=== PATIENT | female | born 1955 | race Caucasian/White ===

== ENCOUNTER 2021-05-07 05:06 | Emergency (ER) | payer MEDICAID ==
[~2021-05-07] VITALS: Ht 157.5 cm; Wt 62.6 kg
--- NOTE | 2021-05-07 06:38 | NUR ---
PT BIBS C/O ABDOMINAL DISCOMFORT S/P ASCITES. REQUESTING FOR PARACENTESIS. PATIENT ALERT AND ORIENTED X3. AMBULATORY WITH NON LABORED BREATHING.
[2021-05-07 07:13] VITALS: BP 120/70
--- NOTE | 2021-05-07 07:40 | NUR ---
Patient discharged to home in stable condition. Written and verbal after care instructions given. Patient verbalizes understanding of instruction.
--- NOTE | 2021-05-07 07:54 | NUR ---
ATTEMPTED TO DEPART PT, NEW TAB WAS FREEZING, AND WAS UNABLE TO.
== END 2021-05-07 08:40 | disposition home or self-care (01) ==
LOC: ER 05:12
DX: R18.8 Other ascites (principal); R17 Unspecified jaundice

== ENCOUNTER 2021-07-06 23:10 | Inpatient (IN) | payer MEDICAID ==
[~2021-07-06] VITALS: Ht 162.6 cm; Wt 65.8 kg
--- NOTE | 2021-07-06 23:14 | NUR ---
BIBR 102 C/O VOMITTING BLOOD SINCE 30 MINUTES AGO. AMS. HX ESOPHAGEAL VARICES. PT TOLERATING R/A WELL WITH NO SOB AT 97%. INNERSOLE MAKER LFA #18G S/L; PATENT AND INTACT. EMS ADMINSTERING NS 1000ML. CONNECTED PT TO POX AND MONITOR. SAFETY MEASURES IN PLACE.
--- NOTE | 2021-07-06 23:27 | NUR ---
PAGED DR JAY PER DR ORTA
[2021-07-06] MEDS ORDERED: OCTREOTIDE 100 MCG/ML VIAL ONE (23:30)
[2021-07-06] MEDS ORDERED: OCTREOTIDE 500 MCG/ML VIAL ONE (23:30)
[2021-07-06] MEDS ORDERED: CEFTRIAXONE 1GM BAG (ER ONLY) 1 GM/50 ML PIGGYBACK IV ONE (23:30)
[2021-07-06] MEDS ORDERED: OCTREOTIDE 1,250 MCG in IV NS 0.9% 250 ML IV ONE (23:30)
[2021-07-06] MEDS ORDERED: OCTREOTIDE 50 MCG/ML AMPUL IV ONE (23:30)
[2021-07-06] MEDS ORDERED: ONDANSETRON HCL/PF 4 MG/2 ML VIAL IVP ONE (23:30)
[2021-07-06] MEDS ORDERED: ONDANSETRON HCL/PF 4 MG/2 ML VIAL ONE (23:31)
--- NOTE | 2021-07-06 23:35 | NUR ---
RADIAL DRILL PRESS SET UP OPERATOR AT PT'S BEDSIDE
[2021-07-06] MEDS ORDERED: CEFTRIAXONE 1GM BAG (ER ONLY) 50 ML IV ONE (23:46)
--- NOTE | 2021-07-06 23:46 | NUR ---
RE PAGED DR JAY AT [phone]
--- NOTE | 2021-07-06 23:46 | NUR ---
SUPERINTENDENT CONTAINER TERMINAL AT PT'S BEDSIDE
--- NOTE | 2021-07-06 23:49 | NUR ---
COVID ANTIGEN SWAB COLLECTED AND SENT TO LAB
[2021-07-07] VITALS (59 sets, daily range): BP systolic 80–113; BP diastolic 50–71
--- NOTE | 2021-07-07 00:16 | NUR ---
RE PAGED DR JAY AT [phone]
[2021-07-07 00:22] LABS: BASOPHILS # (AUTO) 0.1 K/uL (0.0-0.2); BASOPHILS % (AUTO) 0.8 % (0.0-2.0); EOSINOPHILS % (AUTO) 1.8 % (0.0-6.0); HEMATOCRIT 28 % (33-45); HEMOGLOBIN 9.4 g/dL (11.5-14.8); LYMPHOCYTES # (AUTO) 3.2 K/uL (0.8-4.8); MEAN CORPUSCULAR HGB CONC 33 g/dl (31.0-36.0); MEAN CORPUSCULAR VOLUME 95 fL (82-100); MONOCYTES # (AUTO) 0.9 K/uL (0.1-1.30); MONOCYTES % (AUTO) 9.2 % (2.0-12.0); NEUTROPHILS # (AUTO) 5.2 K/uL (1.8-8.9); NEUTROPHILS % (AUTO) 54.2 % (43.0-81.0); PLATELET COUNT (AUTO) 100 K/uL (150-450); RED BLOOD CELL COUNT(AUTO) 2.98 MIL/uL (4.0-5.2); WHITE BLOOD COUNT (AUTO) 9.5 K/uL (4.3-11.0)
--- NOTE | 2021-07-07 00:32 | NUR ---
PAGED DR. SANDOVAL.
[2021-07-07] MEDS ORDERED: NOREPINEPHRINE 4 MG/4 ML AMPUL IV ONE (00:33)
[2021-07-07 00:42] LABS: ALANINE AMINOTRANSFERASE 30 U/L (12-78); ALBUMIN 1.9 g/dL (3.4-5.0); ALKALINE PHOSPHATASE 89 U/L (46-116); ASPARTATE AMINOTRANSFERASE 47 U/L (15-37); BILIRUBIN,DIRECT 1.9 mg/dL (0.0-0.2); BILIRUBIN,TOTAL 2.5 mg/dL (0.2-1.0); CALCIUM, SERUM 8.3 mg/dL (8.5-10.1); CARBON DIOXIDE 22 mmol/L (21-32); CHLORIDE 105 mmol/L (98-107); CREATININE 1.8 mg/dL (0.6-1.3); GLUCOSE 134 mg/dL (74-106); LIPASE 155 U/L (73-393); POTASSIUM 3.7 mmol/L (3.5-5.1); SODIUM SERUM 132 mmol/L (136-145); TOTAL PROTEIN, SERUM 5.3 g/dL (6.4-8.2); UREA NITROGEN, BLOOD 34 mg/dL (7-18)
--- NOTE | 2021-07-07 00:45 | NUR ---
BLOOD TRANSFUSION RBCx1 INITIATED AND WITNESSED BY TWO RNS. WILL MONITOR FOR ADVERSE REACTIONS.
--- NOTE | 2021-07-07 01:05 | NUR ---
MULTIPLE ATTEMPTS TO PAGE DR MISTY RAWLS AND DR SANDOVAL WITH NO RESPONSE OR CALL BACK
--- NOTE | 2021-07-07 01:07 | NUR ---
DR ORTA ON THE PHONE WITH MANAV EDWARDS
--- NOTE | 2021-07-07 01:15 | NUR ---
DR ORTA ON THE PHONE WITH DR SANDOVAL
[2021-07-07] MEDS ORDERED: NOREPINEPHRINE 8 MG in IV NS 0.9% 250 ML IV ONE (01:30)
--- NOTE | 2021-07-07 02:20 | NUR ---
UPDATED MICHELLE (DAUGHTER) VIA PHONE CALL
--- NOTE | 2021-07-07 02:33 | NUR ---
SPOKE TO [place] SIDE ROLLOFF TRUCK DRIVER, GEM. PT IS APPROVED TO STAY AT THE HOSPITAL WITH VERBAL AUTH [phone]
--- NOTE | 2021-07-07 02:36 | NUR ---
DR ORTA ON THE PHONE WITH DR MATSON
--- NOTE | 2021-07-07 02:50 | NUR ---
ADMITTING ORDERS OBTAINED FROM DR MATSON OVER THE PHONE. HOME MEDS REVIEWED. PER DR MATSON TO HOLD THE HOME MEDS
--- NOTE | 2021-07-07 02:52 | NUR ---
LAB AT BEDSIDE
[2021-07-07 03:02] LABS: HEMOGLOBIN 13.3 g/dL (11.5-14.8)
--- NOTE | 2021-07-07 03:06 | NUR ---
DR ORTA AT BED SIDE FOR CENTAL LINE PLACEMENT
--- NOTE | 2021-07-07 03:29 | NUR ---
BLOOD TRANFUSION RBCx4 , PT TOLARATED WELL . NO ADVERSE REACTIONS NOTED. VS STABLE
--- NOTE | 2021-07-07 03:45 | NUR ---
DR ORTA AT BED SIDE FOR CENTRAL LINE INSERTION
--- NOTE | 2021-07-07 04:14 | NUR ---
REPORT GIVEN TO FERNANDA ENGLISH FOR [place]
[2021-07-07] MEDS ORDERED: FURO-145 PO (04:30)
[2021-07-07] MEDS ORDERED: PANT40TA49 PO (04:30)
[2021-07-07] MEDS ORDERED: SPIR50TA5 PO (04:30)
[2021-07-07] MEDS ORDERED: LACT10SO3 PO (04:30)
[2021-07-07] MEDS ORDERED: ZINC50TA69 PO (04:30)
[2021-07-07] MEDS: OCTREOTIDE 1,250 MCG in IV NS 0.9% 247.5 ML IV PRN ×2 (04:40→16:15)
--- NOTE | 2021-07-07 05:11 | NUR ---
BILLIARD PARLOR MANAGER, ADMISSION. PT BEING ADMITTED FROM ER FOR HEMATEMESIS. LEVO STARTED FROM ER. PT IS ROOM AIR. SAT 95%. NO ACUTE DISTRESS NOTED. TURBINE ENGINEER SHOWING NSR. IV RT IJ TLC, RT AND LT HAND 18G. FC PATENT. PT IS NPO. AFEBRILE. LEVOPHED 0.3MCG/KG/MIN,SANDOSTATIN 50MCG/KG/MIN, HOB ELEVATED. ABDOMEN DISTENDED. WILL CONTINUE TO MONITOR VITALS.
--- NOTE | 2021-07-07 05:33 | NUR ---
BIAS BINDING CUTTER. ADMITTING ORDER RECEIVED FROM MD MATSON. GI CONSULT ORDERED. I CALLED GI OFFICE LEFT MESSAGE
[2021-07-07] MEDS ORDERED: PANTOPRAZOLE 40 MG VIAL ONE (05:51)
[2021-07-07] MEDS ORDERED: NOREPINEPHRINE 8MG/250ML RTU 250 ML IV ONE (05:51)
[2021-07-07] MEDS: IV D5/ 0.9% NACL 1,000 ML IV PRN ×2 (05:56→19:24)
[2021-07-07] MEDS: PANTOPRAZOLE 40 MG VIAL IV SCH ×3 (05:56→16:31)
[2021-07-07] MEDS: NOREPINEPHRINE 8 MG in IV NS 0.9% 242 ML IV PRN ×2 (05:59→16:15)
[2021-07-07] MEDS ORDERED: ONDANSETRON HCL/PF 4 MG/2 ML VIAL IV PRN (06:00)
[2021-07-07] MEDS ORDERED: MORPHINE SULFATE INJ 2 MG/ML DISP.SYRIN IV PRN (06:00)
--- NOTE | 2021-07-07 06:38 | NUR ---
PUBLIC INFORMATION DIRECTOR. PT DAUGHTER MICHELLE CALLED, UPDATED TODAYS PLAN.
--- NOTE | 2021-07-07 06:43 | NUR ---
FUEL OIL CLERK. PT IS NPO. MD JAY CALLED UPDATED, PLAN IS TODAY EGD
[2021-07-07 06:44] LABS: BASOPHILS % (AUTO) 0.1 % (0.0-2.0); HEMATOCRIT 41 % (33-45); HEMOGLOBIN 13.6 g/dL (11.5-14.8); LYMPHOCYTES # (AUTO) 0.8 K/uL (0.8-4.8); LYMPHOCYTES % (AUTO) 6.1 % (20.0-44.0); MEAN CORPUSCULAR HGB CONC 33 g/dl (31.0-36.0); MEAN CORPUSCULAR VOLUME 90 fL (82-100); MONOCYTES # (AUTO) 1.2 K/uL (0.1-1.30); MONOCYTES % (AUTO) 9.5 % (2.0-12.0); NEUTROPHILS # (AUTO) 10.6 K/uL (1.8-8.9); NEUTROPHILS % (AUTO) 84.3 % (43.0-81.0); PLATELET COUNT (AUTO) 96 K/uL (150-450); RED BLOOD CELL COUNT(AUTO) 4.55 MIL/uL (4.0-5.2); WHITE BLOOD COUNT (AUTO) 12.6 K/uL (4.3-11.0)
--- NOTE | 2021-07-07 07:20 | NUR ---
RN OPENING NOTES RECEIVED PT IN BED, AWAKE. A/O X4. STABLE ON ROOM AIR. NO SOB OR ANY S/S OF DISTRESS NOTED. SR ON TELE MONITOR. IV ACCESS ON L FA #18, R AC#18 AND R IJ TLC. ALL INTACT, PATENT AND FLUSHED. LEVO @0.2 MCG/KG/MIN, SANDOSTATIN @50ML/HR AND D5NS @75ML/HR. INFUSING WELL. FOOLEY CATH IN PLACE, DRAINING YELLOW COLORED URINE. SKIN IS INTACT. NPO. SAFETY PRECAUTIONS IMPLEMENTED. CALL LIGHT WITHIN REACH. BED LOCKED AND IN LOWEST POSITION WITH SIDE RAILS UP X2. WILL CONITNUE TO MONITOR.
[2021-07-07 07:25] LABS: ALBUMIN 2.1 g/dL (3.4-5.0); BILIRUBIN,TOTAL 4.7 mg/dL (0.2-1.0); CALCIUM, SERUM 8.1 mg/dL (8.5-10.1); CREATININE 1.6 mg/dL (0.6-1.3); POTASSIUM 4.5 mmol/L (3.5-5.1); TOTAL PROTEIN, SERUM 5.7 g/dL (6.4-8.2)
--- NOTE | 2021-07-07 09:27 | NUR ---
RN NOTES PROTONIX IV FOR 0900 NOT ADMINISTERED. LAST DOSE WAS GIVEN AT 0556. PHARMACY MADE AWARE AND WILL RESUME NEXT DOSE AT 1700.
[2021-07-07] MEDS ORDERED: METOCLOPRAMIDE HCL 10 MG/2 ML VIAL IV ONE (11:30)
--- NOTE | 2021-07-07 13:56 | NUR ---
RN NOTES PT WAS PICKED UP BY JOSE RN AND OR TEAM FOR EGD. VS STABLE. CONSENTS SIGNED.
[2021-07-07] MEDS ORDERED: FENTANYL PF 100MCG/2ML AMPUL ONE (15:02)
--- NOTE | 2021-07-07 16:04 | NUR ---
RN NOTES PT WAS BROUGHT BACK TO ROOM FROM OR ACCOMPANIED BY OR TEAM. VS STABLE. AWAKE. ON 3L O2 VIA NC. NO SOB OR ANY DISTRESS. WILL CONTINUE TO MONITOR.
[2021-07-07 18:03] LABS: HEMOGLOBIN 13.4 g/dL (11.5-14.8)
--- NOTE | 2021-07-07 18:45 | NUR ---
RN NOTES NOTIFIED DR. MATSON FOR RESULTS OF TROP 173. NEW ORDERS MADE AND CARRIED OUT.
--- NOTE | 2021-07-07 19:30 | NUR ---
RN NOTES NO SIGNIFICANT CHANGES THROUGHOUT THE SHIFT. STABLE ON ROOM AIR. ALL DUE MEDS GIVEN. NEEDS ATTENDED. KEPT CLEAN AND COMFORTABLE. SAFETY MEASURES IMPLEMENTED. ENDORSED TO NIGHT RN FOR [place].
[2021-07-07 23:01] LABS: IRON, SERUM 79 ug/dl (50-175); TOTAL IRON BINDING CAPACITY 224 ug/dl (250-450)
[2021-07-07 23:18] LABS: FERRITIN 158 ng/mL (8-388)
[2021-07-07] MEDS: CEFTRIAXONE 1 G in IV D5W 50 ML IV SCH (23:27)
[2021-07-08] VITALS (39 sets, daily range): BP systolic 81–122; BP diastolic 37–80
[2021-07-08 04:24] LABS: HEMOGLOBIN 11.9 g/dL (11.5-14.8); MONOCYTES # (AUTO) 0.8 K/uL (0.1-1.30); NEUTROPHILS # (AUTO) 4.7 K/uL (1.8-8.9); PLATELET COUNT (AUTO) 55 K/uL (150-450)
[2021-07-08 04:50] LABS: ALBUMIN 1.9 g/dL (3.4-5.0); BILIRUBIN,TOTAL 4.4 mg/dL (0.2-1.0); CALCIUM, SERUM 7.9 mg/dL (8.5-10.1); CREATININE 1.4 mg/dL (0.6-1.3); POTASSIUM 3.9 mmol/L (3.5-5.1); TOTAL PROTEIN, SERUM 5.2 g/dL (6.4-8.2)
[2021-07-08 05:08] LABS: BASOPHILS % (AUTO) 0.5 % (0.0-2.0); EOSINOPHILS % (AUTO) 1.3 % (0.0-6.0); HEMATOCRIT 36 % (33-45); LYMPHOCYTES # (AUTO) 1.5 K/uL (0.8-4.8); LYMPHOCYTES % (AUTO) 20.4 % (20.0-44.0); MEAN CORPUSCULAR HGB CONC 33 g/dl (31.0-36.0); MEAN CORPUSCULAR VOLUME 92 fL (82-100); MONOCYTES % (AUTO) 11.5 % (2.0-12.0); NEUTROPHILS % (AUTO) 66.3 % (43.0-81.0); RED BLOOD CELL COUNT(AUTO) 3.92 MIL/uL (4.0-5.2); WHITE BLOOD COUNT (AUTO) 7.1 K/uL (4.3-11.0)
[2021-07-08] MEDS ORDERED: LACTULOSE 10 G/15 ML UDC (PYXIS) PO PRN ×2 (07:30→12:00)
[2021-07-08] MEDS: PANTOPRAZOLE 40 MG VIAL IV SCH ×2 (09:09→16:28)
--- NOTE | 2021-07-08 16:00 | NUR ---
Patient arrived via wheelchair from ICU around 1600. Patient AO X 4, able to make needs known, can follow simple commands, no apparent distress noted, breathing even and unlabore, no chest pain, no dizziness, no palpitation. Patient's vital signs within normal limits, no complained of facial numbness or weakness, no extremity numbness or weakness at this time. Skin intact, warm to touch, no pallor or cyanosis noted. Patient oriented with use of call lights, use of bed control, use of telephone and tv control, also introduces COMMERCIAL RETOUCHER and RN assigned for today, verbalized understanding and gratitude. All belongings written in the inventory list. All needs attended, kept clean and dry, call light left within reach, safety precautions in place, brakes locked, side rails up X 2, will endorse to next shift for continuity of care.
--- NOTE | 2021-07-08 16:01 | NUR ---
Patient arrived via wheelchair from ICU around 1600. Patient AO X 4, able to make needs known, can follow simple commands, no apparent distress noted, breathing even and unlabore, no chest pain, no dizziness, no palpitation. Patient's vital signs within normal limits, no complained of facial numbness or weakness, no extremity numbness or weakness at this time. Skin intact, warm to touch, no pallor or cyanosis noted. Patient oriented with use of call lights, use of bed control, use of telephone and tv control, also introduces WIRER HELPER and RN assigned for today, verbalized understanding and gratitude. All belongings written in the inventory list. All needs attended, kept clean and dry, call light left within reach, safety precautions in place, brakes locked, side rails up X 2, will monitor closely for any changes.
[2021-07-08 16:19] LABS: BAND % (MANUAL) 1 % (0.0-5.0); EOSINOPHILS % (MANUAL) 1 % (0-4); LYMPHOCYTES % (MANUAL) 13 % (16-48); MONOCYTES % (MANUAL) 2 % (0-11.0); NEUTROPHILS % (MANUAL) 83 (42-76)
[2021-07-08] MEDS: IV D5/ 0.9% NACL 1,000 ML IV PRN (16:31)
--- NOTE | 2021-07-08 18:43 | NUR ---
RN CLOSING NOTES Patient lying in bed, no shortness of breath, respirations even and unlabored, no apparent distress noted, denies any pain or discomfort, no grimacing, no dizziness, no palpitations, no chest pain, remained afebrile, no s/s of bleeding, no unusual bruising noted. All due medications given per MD order, tolerated well. Sibley catheter draining clear yellowish urine free from any sediments, no hematuria, and no unusual odor noted in urine, denies any bladder pain or discomfort, bladder non distended during shift. Aspiration precautions observed at all times, kept head of bed elevated, all needs anticipated, kept clean and dry, patient repositioned frequently, safety precautions in place, frequent visual checks rendered, side rails up X 2, brakes locked, call light left within reach, will endorse to next shift for continuity of care.
--- NOTE | 2021-07-08 20:13 | NUR ---
TJEA RN OPENING NOTES: RECEIVED PATIENT AWAKE IN BED, BED IN LOW POSITION, CALL LIGHTS WITHIN REACH, NO COMPLAIN OF PAIN AND DISCOMFORT AT THIS TIME, ON ROOM AIR SATURATING WELL, PATIENT ON TELE MONITORING SR-94, WITH ONGOING IV LINE AT [facility] ON D5NS@75ML PER HOUR INFUSING WELL, WITH IV LINE AT RAC#18, PATIENT ON MACKEY CATHETER WITH 100CC URINE OUTPUT CLEAR YELLOW, ON MONITORING FOR BLEEDING, PATIENT KEPT CLEAN AND DRY ALL NEEDS MET WILL CONTINUE TO MONITOR.
[2021-07-08] MEDS: PROPRANOLOL HCL 10 MG TABLET PO SCH (21:19)
[2021-07-08] MEDS: CEFTRIAXONE 1 G in IV D5W 50 ML IV SCH (23:05)
[2021-07-09] VITALS: BP 99/67
[2021-07-09 04:30] VITALS: BP 82/52
[2021-07-09] MEDS: IV D5/ 0.9% NACL 1,000 ML IV PRN (04:44)
--- NOTE | 2021-07-09 06:17 | NUR ---
SUPERVISOR PULLET FARM CLOSING NOTES: PATIENT SLEEP IN BED COMFORTABLY, BED IN LOW POSITION CALL LIGHTS WITHIN REACH, NO COMPLAIN OF PAIN AND DISCOMFORT AT THIS TIME, PATIENT IS A/O X4 AMBULATORY ABLE TO TRANSFER FROM BEDSIDE TO COMMODE WITH ASSISTANCE, WITH IV LINE AT [facility] WITH ONGOING D5NS@75ML PER HOUR INFUSING WELL, WITH RAC#18 SL, ON TELE MONITORING SR-71, ON ROOM AIR SATURATING WELL, PATIENT KEPT CLEAN AND DRY ALL NEEDS MET ENDORSE TO INCOMING SHIFT.
[2021-07-09 06:49] LABS: BASOPHILS % (AUTO) 0.2 % (0.0-2.0); EOSINOPHILS % (AUTO) 2.4 % (0.0-6.0); HEMATOCRIT 36 % (33-45); HEMOGLOBIN 11.9 g/dL (11.5-14.8); LYMPHOCYTES # (AUTO) 1.3 K/uL (0.8-4.8); LYMPHOCYTES % (AUTO) 18.5 % (20.0-44.0); MEAN CORPUSCULAR HGB CONC 33 g/dl (31.0-36.0); MEAN CORPUSCULAR VOLUME 93 fL (82-100); MONOCYTES # (AUTO) 0.7 K/uL (0.1-1.30); MONOCYTES % (AUTO) 9.8 % (2.0-12.0); NEUTROPHILS # (AUTO) 4.9 K/uL (1.8-8.9); NEUTROPHILS % (AUTO) 69.1 % (43.0-81.0); PLATELET COUNT (AUTO) 61 K/uL (150-450); RED BLOOD CELL COUNT(AUTO) 3.88 MIL/uL (4.0-5.2); WHITE BLOOD COUNT (AUTO) 7.2 K/uL (4.3-11.0)
--- NOTE | 2021-07-09 07:39 | NUR ---
CARTON LINER OPENING NOTES PATIENT LAYING IN BED A/O X 4, BED IN LOWEST LOCKED, POSITION CALL LIGHTS WITHIN REACH, NO COMPLAINTS OF PAIN OR DISCOMFORT AT THIS TIME. PATIENT IS AMBULATORY AND ABLE TO TRANSFER FROM BEDSIDE TO COMMODE WITH ASSISTANCE, IV LINE RIJ WITH ONGOING D5 NS@75ML PER HOUR INFUSING WELL, WITH RAC#18 SL PATENT AND FLUSHING WELL. TELE MONITOR SR-84, TOLERATING WELL ON ROOM AIR WITH NO S/S OF RESPIRATORY DISTRESS AT THIS TIME. WILL CONTINUE TO MONITOR.
[2021-07-09 07:41] LABS: ALBUMIN 1.8 g/dL (3.4-5.0); BILIRUBIN,TOTAL 3.7 mg/dL (0.2-1.0); CALCIUM, SERUM 8.2 mg/dL (8.5-10.1); CREATININE 1.2 mg/dL (0.6-1.3); MAGNESIUM 1.6 mg/dL (1.8-2.4); PHOSPHORUS 2.6 mg/dL (2.5-4.9); POTASSIUM 4.3 mmol/L (3.5-5.1); TOTAL PROTEIN, SERUM 5.1 g/dL (6.4-8.2)
[2021-07-09] MEDS: PROPRANOLOL HCL 10 MG TABLET PO SCH (08:15)
[2021-07-09] MEDS: PANTOPRAZOLE 40 MG VIAL IV SCH ×2 (08:16→16:47)
[2021-07-09] MEDS ORDERED: METOPROLOL TARTRATE INJ 5 MG/5 ML AMPUL IVP PRN (09:00)
[2021-07-09] MEDS ORDERED: NITROGLYCERIN 0.4 MG/TAB BOTTLE SL ONE (09:00)
[2021-07-09] MEDS ORDERED: IV NS 0.9% 250 ML IV ONE (10:02)
[2021-07-09] MEDS ORDERED: IOHEXOL-350 100 ML VIAL IV ONE (10:02)
--- NOTE | 2021-07-09 10:03 | NUR ---
PROGRAM SUPPORT SPECIALIST NOTES SPOKE WITH ADELFO IN RADIOLOGY REGARDING PATIENT PRESCRIBED MAGNESIUM INTRAVIOUS MEDICATION WHO STATED MEDICATION COULD BE ADMINISTERED FOLLOWING PATIENT RETURN FROM PROCEDURE. PATIENT WAS PICKED UP BY TRANSPORT, DISCONNECTED FROM IV FLUIDS AND TELE MONITOR, AND TRANSPORTED OFF OF FLOOR FOR PROCEDURE. CONSENTS SIGNED PRIOR TO TRANSPORT.
[2021-07-09] MEDS: Magnesium 1GM/D5W 100ML PREMIX 100 ML IV SCH ×2 (11:10→12:32)
--- NOTE | 2021-07-09 11:10 | NUR ---
DEPUTY CLERK OF SUPERIOR COURT NOTES PATIENT RETURNED FROM PROCEDURE, STABLE, BP 91/48, HR 61, T 98.2, 02 99% ON ROOM AIR. IV MAGNESIUM ADMINISTERED ORDERED.
[2021-07-09] MEDS ORDERED: LACTULOSE 10 G/15 ML UDC (PYXIS) PO PRN (11:30)
[2021-07-09] MEDS ORDERED: PROP10TA68 PO (11:36)
[2021-07-09 11:39] VITALS: BP 85/66
[2021-07-09] MEDS ORDERED: Magnesium 1GM/D5W 100ML PREMIX 100 ML IV SCH (12:30)
--- NOTE | 2021-07-09 15:06 | NUR ---
Dr. Cheng reviewed [facility] via phone and cleared pt for discharge home.
--- NOTE | 2021-07-09 17:00 | NUR ---
DUST COLLECTOR ATTENDANTSTRATEGY INTERN NOTES DISCHARGE INSTRUCTIONS PROVIDED TO PATIENT, PATIENT VERBALIZED UNDERSTANDING OF INSTRUCTIONS AND SIGNED INSTRUCTIONS SHEET. PATIENT STATED SHE HAS ALL BELONGINGS AND SIGNED BELONGINGS LIST. R IJ CENTRAL LINE REMOVED 23 CM TUBING WITH NO COMPLAINTS OR DISCOMFORT. R FOREARM 18 G SL ALSO REMOVED WITH NO COMPLAINTS OR DISTRESS. MACKEY CATHETER REMOVED WITHOUT INCIDENT. ARM BANDS REMOVED. PATIENT VITAL SIGNS STABLE AND NO SIGNS OF DISTRESS UPON TIME OF DISCHARGE. PATIENT TRANSPORTED OFF OF FLOOR BY ESTRELLITA AVALOS VIA WHEELCHAIR.
== END 2021-07-09 18:02 | disposition home or self-care (01) | DRG 280 ==
LOC: ER 23:12 → ICU 07-07 03:04 → TELE 07-08 16:11
PROVIDERS: ADMIT Internal Medicine; ATTEND Internal Medicine
PROC: 30233N1 Transfusion of Nonautologous Red Blood Cells into Peripheral Vein, Percutaneous Approach (ICD-10-PCS; principal; 2021-07-07)
PROC: 06L38CZ Occlusion of Esophageal Vein with Extraluminal Device, Via Natural or Artificial Opening Endoscopic (ICD-10-PCS; 2021-07-07)
PROC: 0W9G3ZZ Drainage of Peritoneal Cavity, Percutaneous Approach (ICD-10-PCS; 2021-07-09)
DX: K70.31 Alcoholic cirrhosis of liver with ascites (principal); N17.0 Acute kidney failure with tubular necrosis; R57.1 Hypovolemic shock; I85.11 Secondary esophageal varices with bleeding; E72.4 Disorders of ornithine metabolism; D62 Acute posthemorrhagic anemia; K76.6 Portal hypertension; K92.2 Gastrointestinal hemorrhage, unspecified; D69.59 Other secondary thrombocytopenia; Z87.891 Personal history of nicotine dependence; R07.9 Chest pain, unspecified; K31.89 Other diseases of stomach and duodenum; K72.10 Chronic hepatic failure without coma
CPT/HCPCS: 36415; 71045-TC; 75574; 76942-TC; 80048-TC; 80053-TC; 80076-TC; 82140-TC; 82728-TC; 83540-TC; 83690-TC; 83735-TC; 84100-TC; 84484-TC; 85025-TC; 85027-TC; 85730-TC; 86850-TC; 87081-TC; 93307-TC; C9113; C9803; G0378; J0330; J0696; J2354; J2405; J2765; J3010; J3475; J3490; J7030; J7042; J7050; J7060; P9016; Q9967

== ENCOUNTER 2021-07-14 12:14 | Emergency (ER) | payer MEDICAID ==
[~2021-07-14] VITALS: Ht 160 cm; Wt 54.4 kg
[~2021-07-14 12:14] MED LIST: FURO-145 PO; LACT10SO3 PO; PANT40TA49 PO; PROP10TA68 PO; SPIR50TA5 PO; ZINC50TA69 PO
--- NOTE | 2021-07-14 12:17 | NUR ---
BIBS C/O EPIGASTRIC AREA PAIN W/ NAUSEA X 3 DAYS, PARACENTESIS THIS AM AT [facility]. ATTCHED TO MONITOR, AWAITING MD MCKEON.
[2021-07-14 13:08] LABS: BASOPHILS # (AUTO) 0.1 K/uL (0.0-0.2); BASOPHILS % (AUTO) 1.1 % (0.0-2.0); EOSINOPHILS % (AUTO) 0.1 % (0.0-6.0); HEMATOCRIT 40 % (33-45); HEMOGLOBIN 13.1 g/dL (11.5-14.8); LYMPHOCYTES # (AUTO) 0.9 K/uL (0.8-4.8); MEAN CORPUSCULAR HGB CONC 33 g/dl (31.0-36.0); MEAN CORPUSCULAR VOLUME 93 fL (82-100); MONOCYTES # (AUTO) 0.5 K/uL (0.1-1.30); MONOCYTES % (AUTO) 7.9 % (2.0-12.0); NEUTROPHILS # (AUTO) 4.3 K/uL (1.8-8.9); NEUTROPHILS % (AUTO) 74.9 % (43.0-81.0); PLATELET COUNT (AUTO) 75 K/uL (150-450); RED BLOOD CELL COUNT(AUTO) 4.28 MIL/uL (4.0-5.2); WHITE BLOOD COUNT (AUTO) 5.8 K/uL (4.3-11.0)
--- NOTE | 2021-07-14 13:09 | NUR ---
COVID ANTIGEN SWAB DONE AND SENT TO THE LAB
[2021-07-14] MEDS ORDERED: PROP10TA68 PO (13:22)
[2021-07-14 13:31] LABS: ALBUMIN 2.2 g/dL (3.4-5.0); BILIRUBIN,DIRECT 1.6 mg/dL (0.0-0.2); BILIRUBIN,TOTAL 3.4 mg/dL (0.2-1.0); CALCIUM, SERUM 8.6 mg/dL (8.5-10.1); CREATININE 1.3 mg/dL (0.6-1.3); POTASSIUM 4.9 mmol/L (3.5-5.1); TOTAL PROTEIN, SERUM 6.3 g/dL (6.4-8.2)
--- NOTE | 2021-07-14 14:21 | NUR ---
URINE COLLECTED AND SENT
[2021-07-14] MEDS ORDERED: MORPHINE SULFATE INJ 4 MG/ML DISP.SYRIN ONE (14:26)
[2021-07-14] MEDS ORDERED: ONDANSETRON HCL/PF 4 MG/2 ML VIAL ONE (14:26)
[2021-07-14] MEDS ORDERED: PANTOPRAZOLE 40 MG VIAL ONE (14:26)
[2021-07-14] MEDS ORDERED: MORPHINE SULFATE INJ 2 MG/ML DISP.SYRIN IV ONE (14:30)
[2021-07-14] MEDS ORDERED: PANTOPRAZOLE 80 MG in IV NS 0.9% 500 ML IV ONE ×4 (14:30)
[2021-07-14] MEDS ORDERED: ONDANSETRON HCL/PF 4 MG/2 ML VIAL IVP ONE (14:30)
[2021-07-14] MEDS ORDERED: IV NS 0.9% 1,000 ML BAG IV ONE (14:30)
[2021-07-14] MEDS ORDERED: PANTOPRAZOLE 40 MG VIAL IV ONE (15:00)
[2021-07-14 15:39] LABS: BILIRUBIN,URINE NEGATIVE (NEGATIVE); COLOR,URINE YELLOW (YELLOW); LEUKOCYTE ESTERASE ,URINE TRACE (NEGATIVE); NITRITE, URINE NEGATIVE (NEGATIVE); PH,URINE 5.5 (5.0-8.0); PROTEIN,URINE NEGATIVE (NEGATIVE); UGLUCOSE NEGATIVE (NEGATIVE); UROBILINOGEN,URINE 0.2 EU/dL (0.2)
[2021-07-14 15:49] LABS: BACTERIA,URINE 1+ /HPF (None Seen); MUCUS,URINE Few /LPF (None Seen); RBC,URINE 0-2 /HPF (0-2); SQUAMOUS EPITHELIAL CELL,UR Few /HPF (None Seen); URINE AMORPHOUS URATE Few /HPF (None Seen)
--- NOTE | 2021-07-14 16:23 | NUR ---
CLINICALS GIVEN TO BE FAXED.
--- NOTE | 2021-07-14 17:47 | NUR ---
CALLED [facility] SANDOVAL [phone] LIU.
--- NOTE | 2021-07-14 17:53 | NUR ---
CALLED [facility] [phone] WITH DR[address] SIFUENTES AGAIN. WILL CALL US BACK.
--- NOTE | 2021-07-14 22:15 | NUR ---
ADMITTED TO [facility] - 10 CALL FOR REPORT: NURSE VICKERS [phone] ETA PICKUP AT [phone]
--- NOTE | 2021-07-14 23:31 | NUR ---
REPORT GIVEN TO ALEE ENGLISH FROM [facility]
[2021-07-15 02:01] VITALS: BP 103/59
--- NOTE | 2021-07-15 03:02 | NUR ---
REPORT GIVEN TO DEJAH MOORE OF [facility]. VSS. PT TRANSFERRING TO [facility] AT THIS TIME.
== END 2021-07-15 03:05 | disposition short-term general hospital (02) ==
LOC: ER 13:35
DX: R10.13 Epigastric pain (principal); K70.31 Alcoholic cirrhosis of liver with ascites; I85.10 Secondary esophageal varices without bleeding; R11.2 Nausea with vomiting, unspecified; G89.29 Other chronic pain; K42.9 Umbilical hernia without obstruction or gangrene; K70.0 Alcoholic fatty liver; E86.0 Dehydration; R16.1 Splenomegaly, not elsewhere classified; R18.8 Other ascites; F10.20 Alcohol dependence, uncomplicated; Z20.822 Contact with and (suspected) exposure to COVID-19
CPT/HCPCS: 36415; 74176; 80048; 80076; 81001; 83605; 83690; 85025; 85730; 87081; 87426; 96361; 96374; 96375; 99285; C9113; C9803; J2270; J2405; J7030

== ENCOUNTER 2021-11-23 01:42 | Inpatient (IN) | payer MEDICAID ==
[~2021-11-23] VITALS: Ht 160 cm; Wt 62.6 kg
--- NOTE | 2021-11-23 02:01 | NUR ---
BIBDAUGHTER FOR VOMITTING BLOOD HX OF CIRROHSIS, ALERT AND VERBALLY RESPONSIVE, NO SOB NOTED, NO S/S OF DISTRESS NOTED
[2021-11-23] MEDS ORDERED: IOHEXOL-300 100 ML VIAL IV ONE (02:17)
--- NOTE | 2021-11-23 02:18 | NUR ---
18G IV LINE ESTABLISHED LAC. BLOOD DRAWN AND SENT TO LAB
[2021-11-23] MEDS ORDERED: ONDANSETRON HCL/PF 4 MG/2 ML VIAL IVP ONE (02:30)
[2021-11-23] MEDS ORDERED: ONDANSETRON HCL/PF 4 MG/2 ML VIAL ONE (02:32)
--- NOTE | 2021-11-23 02:38 | NUR ---
COVID SWAB COLLECTED AND SENT TO LAB
[2021-11-23 02:45] LABS: BASOPHILS # (AUTO) 0.1 K/uL (0.0-0.2); BASOPHILS % (AUTO) 2.4 % (0.0-2.0); EOSINOPHILS % (AUTO) 7.7 % (0.0-6.0); HEMATOCRIT 33 % (33-45); LYMPHOCYTES % (AUTO) 25.9 % (20.0-44.0); MEAN CORPUSCULAR HGB CONC 34 g/dl (31.0-36.0); MEAN CORPUSCULAR VOLUME 89 fL (82-100); MONOCYTES # (AUTO) 0.4 K/uL (0.1-1.30); MONOCYTES % (AUTO) 10.2 % (2.0-12.0); NEUTROPHILS # (AUTO) 2.1 K/uL (1.8-8.9); NEUTROPHILS % (AUTO) 53.8 % (43.0-81.0); PLATELET COUNT (AUTO) 71 K/uL (150-450); RED BLOOD CELL COUNT(AUTO) 3.69 MIL/uL (4.0-5.2); WHITE BLOOD COUNT (AUTO) 3.8 K/uL (4.3-11.0)
--- NOTE | 2021-11-23 02:49 | NUR ---
pt being trandsported to [place] via [facility]
--- NOTE | 2021-11-23 02:58 | NUR ---
BACK FROM CT
[2021-11-23 03:07] LABS: ALANINE AMINOTRANSFERASE 18 U/L (12-78); ALBUMIN 2.6 g/dL (3.4-5.0); ALKALINE PHOSPHATASE 126 U/L (46-116); ASPARTATE AMINOTRANSFERASE 35 U/L (15-37); BILIRUBIN,TOTAL 1.7 mg/dL (0.2-1.0); CALCIUM, SERUM 8.6 mg/dL (8.5-10.1); CARBON DIOXIDE 24 mmol/L (21-32); CHLORIDE 107 mmol/L (98-107); GLUCOSE 109 mg/dL (74-106); POTASSIUM 3.8 mmol/L (3.5-5.1); SODIUM SERUM 139 mmol/L (136-145); TOTAL PROTEIN, SERUM 6.9 g/dL (6.4-8.2); UREA NITROGEN, BLOOD 15 mg/dL (7-18)
--- NOTE | 2021-11-23 04:13 | NUR ---
CALLED [facility] FOR F/U
[2021-11-23] MEDS ORDERED: OCTREOTIDE 50 MCG/ML AMPUL IV ONE (07:00)
[2021-11-23] MEDS ORDERED: PANTOPRAZOLE 80 MG in IV NS 0.9% 100 ML IV ONE (07:00)
--- NOTE | 2021-11-23 07:19 | NUR ---
paged dr ramsey, GI
[2021-11-23] MEDS ORDERED: LACT10SO3 PO (07:24)
[2021-11-23] MEDS ORDERED: OCTREOTIDE 100 MCG/ML VIAL ONE (07:25)
--- NOTE | 2021-11-23 07:28 | NUR ---
DR LIU ON THE PHONE WITH DR MATSON
[2021-11-23] MEDS ORDERED: OCTREOTIDE 1,250 MCG in IV NS 0.9% 250 ML IV ONE (07:30)
--- NOTE | 2021-11-23 07:30 | NUR ---
FOLLOWED UP IV MEDICATIONS W/ PHARMACY; WILL DELIVER WHEN AVAILABLE.
--- NOTE | 2021-11-23 07:40 | NUR ---
PT RESTING, EYES CLOSED, ABLE TO BE AWAKENED, VERBALLY RESPONSIVE AND NOT IN ACUTE DISTRESS. NO VOMITING EPISODE AT THIS TIME.
--- NOTE | 2021-11-23 07:49 | NUR ---
IV LINE ESTABLISHED ON RAC #20, BLOOD DRAWN AND SENT TO LAB.
[2021-11-23 07:52] LABS: BASOPHILS % (AUTO) 0.8 % (0.0-2.0); EOSINOPHILS % (AUTO) 6.2 % (0.0-6.0); HEMATOCRIT 30 % (33-45); LYMPHOCYTES # (AUTO) 0.7 K/uL (0.8-4.8); LYMPHOCYTES % (AUTO) 18.8 % (20.0-44.0); MEAN CORPUSCULAR HGB CONC 34 g/dl (31.0-36.0); MEAN CORPUSCULAR VOLUME 89 fL (82-100); MONOCYTES # (AUTO) 0.4 K/uL (0.1-1.30); MONOCYTES % (AUTO) 10.6 % (2.0-12.0); NEUTROPHILS # (AUTO) 2.3 K/uL (1.8-8.9); NEUTROPHILS % (AUTO) 63.6 % (43.0-81.0); PLATELET COUNT (AUTO) 62 K/uL (150-450); RED BLOOD CELL COUNT(AUTO) 3.32 MIL/uL (4.0-5.2); WHITE BLOOD COUNT (AUTO) 3.7 K/uL (4.3-11.0)
[2021-11-23] MEDS ORDERED: FURO20TA4 PO (07:53)
[2021-11-23] MEDS ORDERED: RIFA550T PO (07:53)
[2021-11-23] MEDS ORDERED: PROP10TA10 PO (07:53)
[2021-11-23] MEDS ORDERED: SPIR50TA5 PO (07:53)
--- NOTE | 2021-11-23 07:59 | NUR ---
CALLED NURSING SUP REGARDING PT BED
--- NOTE | 2021-11-23 08:01 | NUR ---
PAGED DR. JAY TO FOLLOW UP ON CONSULT
[2021-11-23] MEDS ORDERED: OCTREOTIDE 50 MCG in IV NS 0.9% 50 ML IV ONE (08:30)
[2021-11-23] MEDS ORDERED: ONDANSETRON HCL/PF 4 MG/2 ML VIAL IV PRN (08:30)
[2021-11-23] MEDS ORDERED: ACETAMINOPHEN 650 MG/20.3 ML UDC PO PRN (08:30)
[2021-11-23 09:00] LABS: HEMOGLOBIN 10.1 g/dL (11.5-14.8)
--- NOTE | 2021-11-23 09:10 | NUR ---
PT PROVIDED CONSENT FOR US-GUIDED PARACENTESIS PROCEDURE. CONSENT FORM SIGNED BY PT AND PLACED IN THE CHART.
[2021-11-23 09:19] LABS: LYMPHOCYTES % (MANUAL) 15 % (16-48); MONOCYTES % (MANUAL) 10 % (0-11.0); NEUTROPHILS % (MANUAL) 70 (42-76)
[2021-11-23 09:20] LABS: BASOPHILS % (MANUAL) 0 % (0.0-2.0); EOSINOPHILS % (MANUAL) 5 % (0-4)
--- NOTE | 2021-11-23 09:32 | NUR ---
ROOM 113-2
--- NOTE | 2021-11-23 09:38 | NUR ---
RAD AT BEDSIDE FOR PARACENTESIS
--- NOTE | 2021-11-23 09:54 | NUR ---
REPORT GIVEN TO RACHELLE FOR [place]INO
--- NOTE | 2021-11-23 10:18 | NUR ---
ABLE TO REMOVE 2100CC FLUID FROM PARACENTESIS.
--- NOTE | 2021-11-23 10:26 | NUR ---
PT CONSENTED FOR EGD PROCEDURE. CONSENT FOR PROCEDURE AND FOR ANESTHESIA SIGNED BY PATIENT AND PLACED IN THE CHART.
[2021-11-23 10:34] LABS: LIPASE 280 U/L (73-393)
[2021-11-23] MEDS: FUROSEMIDE 20 MG TABLET PO SCH ×2 (10:40→16:08)
[2021-11-23] MEDS: SPIRONOLACTONE 25 MG TABLET PO SCH (10:40)
[2021-11-23] MEDS: LACTULOSE 10 G/15 ML UDC (PYXIS) PO SCH ×3 (10:40→16:07)
[2021-11-23] MEDS: PROPRANOLOL HCL 10 MG TABLET PO SCH ×2 (10:40→16:16)
[2021-11-23] MEDS: PANTOPRAZOLE 40 MG VIAL IV SCH ×2 (10:40→16:07)
[2021-11-23] MEDS: RIFAXIMIN 550 MG TABLET PO SCH ×2 (10:40→16:07)
--- NOTE | 2021-11-23 10:40 | NUR ---
RN OPEN NOTE PATIENT WAS TRANSFERRED TO THE TELE FROM THE ER WITH PRIMARY DIAGNOSIS OF LIVER CIRRHOSIS AND ASCITES ,PATIENT IS ALERT , ORIENTED TIMES 3 , C/O NAUSEA AND EARLIER VOMITING OF BLOOD.patient was takento the or for THE EGD PROCEDURE.
[2021-11-23] MEDS: IV D5 LR 1,000 ML IV SCH (10:45)
--- NOTE | 2021-11-23 10:57 | NUR ---
PT TRANSFERRED TO 113 VIA ACLS PROTOCOL VIA [facility], ACCOMPANIED BY 2 NURSES.
[2021-11-23] MEDS ORDERED: FENTANYL PF 100MCG/2ML AMPUL ONE (11:10)
[2021-11-23] MEDS ORDERED: SUCCINYLCHOLINE CHLORIDE 20 MG/ML VIAL ONE (11:39)
[2021-11-23 13:41] VITALS: BP 119/88
[2021-11-23 15:43] LABS: HEMOGLOBIN 10.4 g/dL (11.5-14.8)
[2021-11-23 17:00] VITALS: BP 103/60
--- NOTE | 2021-11-23 18:04 | NUR ---
RN NOTE PATIENT THROUGH UP BLOODY VOMIT .ZOFRAN WAS ADMINISTERED.
--- NOTE | 2021-11-23 18:29 | NUR ---
RN CLOSING NOTE PATIENT S/P EDG PROCEDURE FEELING VERY WEAK C/O PAIN OF THE ABDOMEN ,TYLENOL WAS ADMINISTERED ,ALSO COMPLAINING OF THE NAUSEA AND VOMITING ,VOMITED TWO TIMES WITH BLOODY VOMIT ,ORDER RECEIVED TO START PATIENT ON CLEAR LIQUID DIET AND RESUME ALL HER MEDS ,PATIENT REFUSED TO EAT ,HAS IV ACCESS OF THE LFA 20 g , WITH L D5% RUNNING AT 75 ML PER HOUR , ALL MEDS WERE ADMINISTERED , ALL NEEDS WERE MET , BED IS AT LOWEST POSITION , BED SIDE RAILS ARE UP , CALL LIGHT WITHIN REACH .
[2021-11-23 20:00] VITALS: BP 93/49
[2021-11-23] MEDS ORDERED: HYDROCODONE/APAP 5/325MG TABLET PO PRN (21:00)
[2021-11-23] MEDS ORDERED: MORPHINE SULFATE INJ 2 MG/ML DISP.SYRIN IV PRN (21:00)
[2021-11-23 21:05] LABS: HEMOGLOBIN 9.8 g/dL (11.5-14.8)
--- NOTE | 2021-11-23 22:02 | NUR ---
LABORER BEAM HOUSE OPENING NOTE PT RECEIVED IN BED, AWAKE AND WATCHING TV, A&O X4, CALM, COOPERATIVE. PT NOTED TO BE ON 2L NC WITH CURRENT O2SAT OF 100%; NO S/S OF RESP DISTRESS, NO SOB OR COUGH, NON-LABORED AND EQUAL BREATHING; APPEARS COMFORTABLE. PT ATTACHED TO EXTERNAL MONITOR, SR WITH HR OF 67. PT NOTED TO BE AMBULATORY AND USES BEDSIDE COMMODE. IV ACCESS ON LFA 20G INTACT AND PATENT, FLUSHES EASILY WITH NO RESISTANCE; HAS D5 LR RUNNING AT 75 ML/HR. BED IN LOWEST POSITION, CALL LIGHT WITHIN REACH, SIDE RAILS UP X2. WILL CONTINUE TO MONITOR THROUGHOUT THE NIGHT.
[2021-11-24] VITALS: BP 90/53
[2021-11-24 03:26] LABS: HEMOGLOBIN 10.2 g/dL (11.5-14.8)
[2021-11-24 04:00] VITALS: BP 92/56
[2021-11-24] MEDS: IV D5 LR 1,000 ML IV SCH ×2 (06:10→11:24)
--- NOTE | 2021-11-24 06:40 | NUR ---
STRETCHER LEVELER OPERATOR CLOSING NOTE PT REMAINS IN BED, ASLEEP BUT EASILY AROUSABLE, A&O X4, SLEPT WELL THROUGHOUT THE NIGHT, CALM, COOPERATIVE. REMAINS ON 2L NC WITH O2SAT RANGING FROM 98%-100% THROUGHOUT THE NIGHT; NO S/S OF RESP DISTRESS, NON-LABORED AND EQUAL BREATHING, NO SOB OR COUGH. PT ATTACHED TO EXTERNAL MONITOR SR WITH HR RANGING FROM 64-69. PT AMBULATORY AND IS ABLE TO USE THE BEDSIDE COMMODE. PT CONTINUES TO BE ON CLEAR LIQUID DIET. LFA 20G INTACT AND PATENT, FLUSHES EASILY WITH NO RESISTANCE; HAS D5 LR RUNNING AT 75 ML/HR. BED IN LOWEST POSITION, CALL LIGHT WITHIN REACH, SIDE RAILS UP X2. WILL ENDORSE TO DAYSHIFT NURSE TO CONTINUE CARE.
[2021-11-24 06:43] LABS: BASOPHILS % (AUTO) 0.4 % (0.0-2.0); EOSINOPHILS % (AUTO) 3.2 % (0.0-6.0); HEMATOCRIT 30 % (33-45); HEMOGLOBIN 10.1 g/dL (11.5-14.8); LYMPHOCYTES # (AUTO) 0.6 K/uL (0.8-4.8); LYMPHOCYTES % (AUTO) 10.3 % (20.0-44.0); MEAN CORPUSCULAR HGB CONC 33 g/dl (31.0-36.0); MEAN CORPUSCULAR VOLUME 91 fL (82-100); MONOCYTES # (AUTO) 0.5 K/uL (0.1-1.30); MONOCYTES % (AUTO) 8.9 % (2.0-12.0); NEUTROPHILS # (AUTO) 4.6 K/uL (1.8-8.9); NEUTROPHILS % (AUTO) 77.2 % (43.0-81.0); PLATELET COUNT (AUTO) 69 K/uL (150-450); RED BLOOD CELL COUNT(AUTO) 3.33 MIL/uL (4.0-5.2)
[2021-11-24 06:54] LABS: ALBUMIN 2.4 g/dL (3.4-5.0); BILIRUBIN,TOTAL 3.1 mg/dL (0.2-1.0); CALCIUM, SERUM 8.5 mg/dL (8.5-10.1); CREATININE 1.3 mg/dL (0.6-1.3); POTASSIUM 4.8 mmol/L (3.5-5.1); TOTAL PROTEIN, SERUM 6.7 g/dL (6.4-8.2)
--- NOTE | 2021-11-24 07:00 | NUR ---
MANUFACTURING SUPPORT ENGINEER OPENING NOTE PT RECEIVED IN BED, A/Ox4, ON TELE SR HR IN 70'S , IVF RUNNING AT 75CC /HR , ON 2L O2 N/C , NO DISTRESS NOTED, SR UP x3, BED LOCKED AND IN LOWEST POSITION, CALL LIGHT WITHIN EASY REACH, WILL CONTINUE TO MONITOR .
[2021-11-24 08:00] VITALS: BP 84/49
[2021-11-24] MEDS: LACTULOSE 10 G/15 ML UDC (PYXIS) PO SCH ×2 (08:29→12:21)
[2021-11-24] MEDS: PANTOPRAZOLE 40 MG VIAL IV SCH (08:29)
[2021-11-24] MEDS: RIFAXIMIN 550 MG TABLET PO SCH (08:30)
[2021-11-24] MEDS: FUROSEMIDE 20 MG TABLET PO SCH (08:34)
[2021-11-24] MEDS: PROPRANOLOL HCL 10 MG TABLET PO SCH (08:34)
[2021-11-24] MEDS: SPIRONOLACTONE 25 MG TABLET PO SCH (08:35)
[2021-11-24] MEDS ORDERED: FERR325T23 PO (08:36)
[2021-11-24] MEDS ORDERED: PANT40TA2 PO (08:46)
[2021-11-24] MEDS ORDERED: FURO-145 PO (08:49)
[2021-11-24 09:00] LABS: BASOPHILS % (MANUAL) 0 % (0.0-2.0); EOSINOPHILS % (MANUAL) 5 % (0-4); LYMPHOCYTES % (MANUAL) 16 % (16-48); MONOCYTES % (MANUAL) 10 % (0-11.0); NEUTROPHILS % (MANUAL) 69 (42-76)
[2021-11-24] MEDS ORDERED: FUROSEMIDE 20 MG TABLET PO SCH (09:00)
[2021-11-24] MEDS ORDERED: OCTREOTIDE 1,250 MCG in IV NS 0.9% 247.5 ML IV PRN ×2 (09:00→13:00)
[2021-11-24 12:00] VITALS: BP 89/51
[2021-11-24 15:12] LABS: HEMOGLOBIN 9.5 g/dL (11.5-14.8)
[2021-11-24 16:00] VITALS: BP 102/67
--- NOTE | 2021-11-24 16:20 | NUR ---
RN NOTES PT OK TO GO HOME PER DR MATSON, IV SITES D/CECD, DISCHARGE INSTRUCTION GIVEN TO PT, VERBALIZES UNDERSTANDING, VSS STABLE , O2 SAT ON RA WNL, PT LEFT THE FLOOR TO MAIN ENTRANCE ACCOMPANIED BY STAFF MEMBERS VIA UBER . NO DISTRESS NOTED
== END 2021-11-24 17:35 | disposition home or self-care (01) | DRG 280 ==
LOC: ER 01:45 → TELE1 10:27 → MERGE 10:27
PROVIDERS: ADMIT Internal Medicine; ATTEND Internal Medicine
PROC: 06L38CZ Occlusion of Esophageal Vein with Extraluminal Device, Via Natural or Artificial Opening Endoscopic (ICD-10-PCS; principal; 2021-11-23)
PROC: 0W9G3ZZ Drainage of Peritoneal Cavity, Percutaneous Approach (ICD-10-PCS; 2021-11-23)
DX: K70.31 Alcoholic cirrhosis of liver with ascites (principal); I85.11 Secondary esophageal varices with bleeding; K76.6 Portal hypertension; J90 Pleural effusion, not elsewhere classified; D62 Acute posthemorrhagic anemia; D69.59 Other secondary thrombocytopenia; I86.4 Gastric varices; F10.21 Alcohol dependence, in remission; Z20.822 Contact with and (suspected) exposure to COVID-19; K31.89 Other diseases of stomach and duodenum; Z87.891 Personal history of nicotine dependence
CPT/HCPCS: 36415; 76942-TC; 80048-TC; 80053-TC; 80076-TC; 82040-TC; 82140-TC; 83690-TC; 84484-TC; 85025-TC; 85027-TC; 85730-TC; 86850-TC; 87070-TC; 87081-TC; 89051-TC; 97116-TC; 97530-TC; C9113; C9803; G0378; J0330; J2354; J2405; J3010; J3490; J7030; J7050; Q9967